=== PATIENT | female | born 1980 | race Caucasian/White ===

== ENCOUNTER 2020-06-02 15:48 | Emergency (ER) | payer MEDICAID ==
[~2020-06-02] VITALS: Ht 160 cm; Wt 66.0 kg
[2020-06-02 15:52] VITALS: BP 125/77
== END 2020-06-02 16:57 | disposition home or self-care (01) ==
LOC: ER 15:49
DX: M77.11 Lateral epicondylitis, right elbow (principal); X50.1XXA Overexertion from prolonged static or awkward postures, initial encounter; Y93.89 Activity, other specified; Y92.513 Shop (commercial) as the place of occurrence of the external cause; Y99.0 Civilian activity done for income or pay
CPT/HCPCS: 99282

== ENCOUNTER 2021-03-08 13:01 | Emergency (ER) | payer MEDICAID ==
[~2021-03-08] VITALS: Ht 160 cm; Wt 54.4 kg
[2021-03-08 13:22] VITALS: BP 118/74
--- NOTE | 2021-03-08 13:48 | NUR ---
WHILE GETTING OUT OF BED SHE TURNED HER HEAD TO THE LEFT TO [place]OO[place] AT THE CLOCK, AND HEARD A POP AND FELT A SHARP PAIN RADIATE UP INTO HER HEAD AND DOWN INTO HER SHOULDER TO BACK, "MOSTLY UP"
--- NOTE | 2021-03-08 13:50 | NUR ---
DENIES NUMBNESS OT TINGLING IN ARMS OR FINGERS, NO VISION CHANGES
--- NOTE | 2021-03-08 13:52 | NUR ---
KAMERON TAKES RELAFEN 500 MG BID FOR "TENNIS ELBOW" RIGHT AND NAPROXYEN 500 MG BID FOR CHRONIC BACK PAIN AND SEES CHIROPRACTOR REGULARLY, AWAITING PTX
--- NOTE | 2021-03-08 13:58 | NUR ---
VERY LIMITED ROM OF NECK: INCREASES PAIN WNL ROM OF ARMS
[2021-03-08] MEDS ORDERED: ketorolac trometh. 30mg/ml inj. IM ONE (14:35)
[2021-03-08] MEDS ORDERED: CYCL-1 PO (14:57)
== END 2021-03-08 15:30 | disposition home or self-care (01) ==
LOC: ER 13:02
DX: S16.1XXA Strain of muscle, fascia and tendon at neck level, initial encounter (principal); Z79.899 Other long term (current) drug therapy; X58.XXXA Exposure to other specified factors, initial encounter; Y93.89 Activity, other specified; Y92.89 Other specified places as the place of occurrence of the external cause; Y99.8 Other external cause status
CPT/HCPCS: 96372; 99283; J1885

== ENCOUNTER 2023-08-08 17:21 | Outpatient (CLI) | payer MEDICAID ==
[~2023-08-08 17:21] MED LIST: CYCL-1 PO
== END 2023-08-08 23:59 | disposition home or self-care (01) ==
LOC: LAB SPEC 23:59
PROVIDERS: ATTEND Surgery
DX: N61.0 Mastitis without abscess (principal)
CPT/HCPCS: 87070

== ENCOUNTER 2023-08-28 10:53 | Emergency (ER) | payer MEDICAID ==
[~2023-08-28] VITALS: Ht 160 cm; Wt 62.9 kg
[2023-08-28 11:22] VITALS: BP 126/69; PULSE 80; RESP 16; TEMP 98.6; O2SAT 97
[2023-08-28] MEDS ORDERED: LIDOcaine 5% patch TP SCH (12:20)
[2023-08-28] MEDS ORDERED: ketorolac trometh. 30mg/ml inj. IM ONE (12:20)
[2023-08-28] MEDS ORDERED: LIDO700A32 TOP (13:14)
[2023-08-28] MEDS ORDERED: IBUP-1986 PO (13:14)
== END 2023-08-28 13:30 | disposition home or self-care (01) ==
LOC: ER 10:53
DX: S20.212A Contusion of left front wall of thorax, initial encounter (principal); Z79.899 Other long term (current) drug therapy; W22.8XXA Striking against or struck by other objects, initial encounter; Y93.89 Activity, other specified; Y92.89 Other specified places as the place of occurrence of the external cause; Y99.8 Other external cause status
CPT/HCPCS: 71101; 96372; 99283; J1885